=== PATIENT | male | born 1975 | race Caucasian/White ===

== ENCOUNTER 2017-12-31 09:50 | Emergency (ER) | payer MEDICAID ==
[2017-12-31] MEDS ORDERED: FAMOTIDINE 20 MG/2 ML VIAL IV STA (10:06)
[2017-12-31] MEDS ORDERED: SODIUM CHLORIDE 0.9% 1,000 ML IV STA (10:06)
[2017-12-31] MEDS ORDERED: RX INFO: IV CONTRAST WAS GIVEN 1 EACH MISC MISCELLANE PRN (10:07)
--- NOTE | 2017-12-31 10:12 | ED ---
General Adult HPI - General Chief complaint: Abdominal Pain Stated complaint: Abdominal pain Time Seen by Provider: 12/31/17 10:01 Source: patient, RN notes reviewed Mode of arrival: ambulatory Limitations: no limitations - History of Present Illness Initial comments: 42-year-old male presents to the emergency department with a chief complaint of centralized abdominal pain. He states that he had fever like symptoms beginning of the week last week towards the end he started to develop the centralized abdominal pain is slowly gotten worse. He states he's had some nausea. He's had some diarrhea. He denies any cough cold like symptoms. He states he's never had any abdominal pain like this before. He states that he did take a lot of Motrin last week he does not know if it's related to that. He was concerned due to his continued pain and history of fever so they thought that he should be seen.Patient denies any recent shortness of breath, chest pain , back pain, vomiting, numbness or tingling, dysuria or hematuria, constipation , headaches or visual changes, or any other current symptoms. - Related Data Home Medications Medication Instructions Recorded Confirmed Buprenorphine HCl [Subutex] 4 mg SL DAILY 12/31/17 12/31/17 Previous Rx's Medication Instructions Recorded Ibuprofen [Motrin] 600 mg PO Q6HR PRN #20 tab 12/31/17 Levofloxacin [Levaquin] 750 mg PO DAILY #7 tab 12/31/17 Allergies Allergy/AdvReac Type Severity Reaction Status Date / Time No Known Allergies Allergy Verified 12/31/17 10:13 Review of Systems ROS Statement: Those systems with pertinent positive or pertinent negative responses have been documented in the HPI. ROS Other: All systems not noted in ROS Statement are negative. Past Medical History Past Medical History: No Reported History History of Any Multi-Drug Resistant Organisms: None Reported Past Surgical History: No Surgical Hx Reported Past Psychological History: No Psychological Hx Reported Smoking Status: Current every day smoker Past Alcohol Use History: Rare Past Drug Use History: None Reported General Exam - General Exam Comments Initial Comments: General: The patient is awake and alert, in no distress, and does not appear acutely ill. Eye: Pupils are equal, round and reactive to light, extra-ocular movements are intact; there is normal conjunctiva bilaterally. No signs of icterus. Ears, nose, mouth and throat: There are moist mucous membranes. Neck: The neck is supple, there is no tenderness. Cardiovascular: There is a regular rate and rhythm. No murmur, rub or gallop is appreciated. Respiratory: Lungs are clear to auscultation, respirations are non-labored, breath sounds are equal. No wheezes, stridor, rales, or rhonchi. Gastrointestinal: Soft, non-distended, non-tender abdomen without masses or organomegaly noted. There is no rebound or guarding present. No CVA tenderness. Bowel sounds are unremarkable. Back: There is no tenderness to palpation in the midline. There is no obvious deformity. No rashes noted. Musculoskeletal: Normal ROM, no tenderness, There is no pedal edema. There is no calf tenderness or swelling. Sensation intact. Pulses equal bilaterally 2+. Neurological: CN II-XII intact, There are no obvious motor or sensory deficits. Coordination appears grossly intact. Speech is normal. Skin: Skin is warm and dry and no rashes or lesions are noted. Psychiatric: Cooperative, appropriate mood & affect, normal judgment. Limitations: no limitations Course Vital Signs 12/31/17 09:53 Temperature 98.6 F Pulse Rate 115 H Respiratory 18 Rate Blood Pressure 108/72 O2 Sat by Pulse 96 Oximetry Medical Decision Making - Medical Decision Making 42-year-old male presents to the emergency department with a chief complaint of centralized abdominal pain. At this time CAT scan and lab work is been reviewed. There is suspicion for a left lower lobe pneumonia. He has had the cough and the fever with abdominal pain. We did discuss that we will start him on antibiotics for this as well as Motrin. We discussed return parameters and follow-up and all they understood and management this plan. They will be discharged. - Lab Data Result diagrams: 12/31/17 10:20 12/31/17 10:20 Lab Results 12/31/17 12/31/17 12/31/17 Range/Units 10:20 10:20 10:20 WBC 4.9 (3.8-10.6) k/uL RBC 4.43 (4.30-5.90) m/uL Hgb 13.5 (13.0-17.5) gm/dL Hct 41.4 (39.0-53.0) % MCV 93.3 (80.0-100.0) fL MCH 30.4 (25.0-35.0) pg MCHC 32.6 (31.0-37.0) g/dL RDW 12.3 (11.5-15.5) % Plt Count 145 L (150-450) k/uL Neutrophils % 54 % Lymphocytes % 31 % Monocytes % 10 % Eosinophils % 0 % Basophils % 1 % Neutrophils # 2.6 (1.3-7.7) k/uL Lymphocytes # 1.5 (1.0-4.8) k/uL Monocytes # 0.5 (0-1.0) k/uL Eosinophils # 0.0 (0-0.7) k/uL Basophils # 0.0 (0-0.2) k/uL Sodium 140 (137-145) mmol/L Potassium 4.4 (3.5-5.1) mmol/L Chloride 104 (98-107) mmol/L Carbon Dioxide 26 (22-30) mmol/L Anion Gap 10 mmol/L BUN 15 (9-20) mg/dL Creatinine 0.63 L (0.66-1.25) mg/dL Est GFR (MDRD) Af Amer >60 (>60 ml/min/1.73 sqM) Est GFR (MDRD) Non-Af >60 (>60 ml/min/1.73 sqM) Glucose 105 H (74-99) mg/dL Calcium 9.0 (8.4-10.2) mg/dL Total Bilirubin 0.5 (0.2-1.3) mg/dL AST 25 (17-59) U/L ALT 27 (21-72) U/L Alkaline Phosphatase 39 (38-126) U/L Total Protein 6.9 (6.3-8.2) g/dL Albumin 3.9 (3.5-5.0) g/dL Amylase 46 (30-110) U/L Lipase 29 (23-300) U/L Urine Color Yellow Urine Appearance Clear (Clear) Urine pH 6.0 (5.0-8.0) Ur Specific [place] 1.048 H (1.001-1.035) Urine Protein Trace H (Negative) Urine Glucose (UA) Negative (Negative) Urine Ketones 1+ H (Negative) Urine Blood Negative (Negative) Urine Nitrite Negative (Negative) Urine Bilirubin Negative (Negative) Urine Urobilinogen <2.0 (<2.0) mg/dL Ur Leukocyte Esterase Negative (Negative) - Radiology Data Radiology results: report reviewed, image reviewed Disposition Clinical Impression: Left lower lobe pneumonia Disposition: HOME SELF-CARE Condition: Stable Instructions: Bacterial Pneumonia (ED) Additional Instructions: Please use medication as discussed. Please follow up with family doctor if symptoms have not improved over the next two days. Please return to the emergency room if your symptoms increase or worsen or for any other concerns. Prescriptions: Ibuprofen [Motrin] 600 mg PO Q6HR PRN #20 tab PRN Reason: Pain Levofloxacin [Levaquin] 750 mg PO DAILY #7 tab Referrals: Jayesh Woodruff MD [Primary Care Provider] - 1-2 days Time of Disposition: 12:21
[2017-12-31 10:44] LABS: Basophils % (A) 1 %; Eosinophils % (A) 0 %; HCT 41.4 % (39.0-53.0); HGB 13.5 gm/dL (13.0-17.5); Lymphocytes # (A) 1.5 k/uL (1.0-4.8); Lymphocytes % (A) 31 %; MCH 30.4 pg (25.0-35.0); MCHC 32.6 g/dL (31.0-37.0); MCV 93.3 fL (80.0-100.0); Mean Platelet Volume 7.1; Monocytes # (A) 0.5 k/uL (0-1.0); Monocytes % (A) 10 %; Neutrophils # (A) 2.6 k/uL (1.3-7.7); Neutrophils % (A) 54 %; Platelet Count 145 k/uL (150-450); RBC 4.43 m/uL (4.30-5.90); RDW 12.3 % (11.5-15.5); WBC 4.9 k/uL (3.8-10.6)
[2017-12-31 10:59] LABS: Albumin 3.9 g/dL (3.5-5.0); Amylase 46 U/L (30-110); Anion Gap 10 mmol/L; Carbon Dioxide 26 mmol/L (22-30); Chloride 104 mmol/L (98-107); Glucose 105 mg/dL (74-99); Lipase 29 U/L (23-300); Sodium 140 mmol/L (137-145); Total Bilirubin 0.5 mg/dL (0.2-1.3); Total Protein 6.9 g/dL (6.3-8.2)
[2017-12-31 11:02] LABS: ALT 27 U/L (21-72); AST 25 U/L (17-59); Alkaline Phosphatase 39 U/L (38-126); Blood Urea Nitrogen 15 mg/dL (9-20); Potassium 4.4 mmol/L (3.5-5.1)
--- NOTE | 2017-12-31 11:21 | CT ---
EXAMINATION TYPE: CT abdomen pelvis w con DATE OF EXAM: 12/31/2017 REFERENCE: NONE HISTORY: Pain HISTORY: Abdominal pain REFERENCE: NONE CT DLP: 423.10 mGy Automated exposure control for dose reduction was used. TECHNIQUE: Helical acquisition through the abdomen and pelvis was obtained following the oral ingesti on of without Oral Contrast and following intravenous administration of 100 ml mL of Omnipaque 300. T he data was reformatted in axial, coronal and sagittal projections. FINDINGS: There is a left lower lobe infiltrate. Right lung is clear. There is no pleural or pericar dial fluid. The heart is not enlarged. Within the abdomen, the gallbladder is partially contracted. The liver and spleen appear normal. Both adrenal glands are normal. Both kidneys demonstrate function and appear morphologically normal. The pancreas is unremarkable. There is no significant retroperitoneal, iliac or inguinal adenopathy. The bladder is unremarkable. There is no significant diverticular change and there is no radiographic evidence of diverticulitis. The appendix is not visualized with certainty. There is moderate stool within the colon. Small bowel loops are of normal caliber. No free fluid and no free air is seen. No bony lesion is seen. IMPRESSION: 1. LEFT LOWER LOBE INFILTRATE, LIKELY REPRESENTING PNEUMONIA. 2. NO ACUTE INTRA-ABDOMINAL INFLAMMATORY PROCESS. 3. NO EVIDENCE OF NEPHROLITHIASIS OR HYDRONEPHROSIS. 4. NONVISUALIZATION OF THE APPENDIX.
--- NOTE | 2017-12-31 11:47 | XR ---
EXAMINATION TYPE: XR chest 2V DATE OF EXAM ORDERED: 12/31/2017 HISTORY: cough. REFERENCE: None. FINDINGS: The lungs are clear. Pleural spaces are clear. Heart size is normal. IMPRESSION: NORMAL CHEST.
[2017-12-31 12:08] LABS: Appearance,Urine Clear (Clear); Bilirubin,Urine Negative (Negative); Blood,Urine Negative (Negative); Color,Urine Yellow; Glucose,Urine (UA) Negative (Negative); Ketones,Urine 1+ (Negative); Leukocyte Esterase,Urine Negative (Negative); Nitrite,Urine Negative (Negative); Protein,Urine Trace (Negative); Urobilinogen,Urine <2.0 mg/dL (<2.0)
[2017-12-31 12:20] LABS: Specific Gravity,Urine 1.048 (1.001-1.035)
[2017-12-31 13:06] VITALS: BP 104/61; PULSE 76; RESP 16; TEMP 97.6
== END 2017-12-31 13:06 | disposition home or self-care (01) ==
LOC: EDBD → EC 09:50 → MERGE 09:50 → EC 13:06
DX: J18.1 Lobar pneumonia, unspecified organism (principal); R10.9 Unspecified abdominal pain; F17.200 Nicotine dependence, unspecified, uncomplicated; Z79.891 Long term (current) use of opiate analgesic
CPT/HCPCS: 36415; 80053; 82150; 83690; 85025; 81003; 87040; 71046; 74177; 99284; 96374; 96361; Q9967

== ENCOUNTER 2018-01-03 07:02 | Day surgery (SDC) | payer MEDICAID ==
[2018-01-02 13:52] VITALS: BMI 20.4
[2018-01-03 07:21] VITALS: TEMP 98.4
[2018-01-03] MEDS ORDERED: LACTATED RINGERS 1,000 ML IV ONE ×2 (07:27)
[2018-01-03] MEDS ORDERED: PROPOFOL 10 MG/ML 20 ML VIAL IV ONE (07:38)
--- NOTE | 2018-01-03 07:59 | P.PCN ---
Date of Procedure: 01/03/18 Procedure(s) Performed: Preoperative Dx: Epigastric abdominal pain recent abnormal CAT scan Postoperative Dx: Gastritis with ulcerations Procedure: EGD with Bx Anesthesia: Sedation Endoscopist: Dr. Acosta Specimens: Antrum/gastric ulcer Endoscopic Procedure: The patient was on the endoscopy table in the left decubitus position. The Olympus gastroscope was inserted into the oropharynx and passed under direct visualization to the region of the third portion of the duodenum. From that point the scope was slowly withdrawn inspecting all surfaces carefully. There were no neoplastic inflammatory or polypoid lesions throughout the duodenum. The pylorus was widely patent. The stomach was carefully inspected. There was evidence of gastric ulcerations present. There were 2 main ulcers seen. Both ulcers were less than 1 cm in size and appeared relatively superficial however the mucosa in the antrum and prepyloric regions were quite thickened. Numerous biopsies were taken of the ulcer and around the ulcer site. The proximal stomach appeared normal. Retroflexion revealed a normal hiatus. The esophagus was then carefully examined. There were no neoplastic inflammatory or polypoid lesions throughout the visualized esophagus. The patient was then taken to the recovery room in stable condition per anesthesia guidelines. Recommendations: Await biopsy results. Start antiacids. Will require short- term follow-up in 3-6 months.
[2018-01-03 08:36] VITALS: BP 117/74; PULSE 78; RESP 16
== END 2018-01-03 08:50 | disposition home or self-care (01) ==
LOC: ORWHC2ENDO 07:02
PROVIDERS: ATTEND Surgery
DX: K29.50 Unspecified chronic gastritis without bleeding (principal); K25.9 Gastric ulcer, unspecified as acute or chronic, without hemorrhage or perforation; F17.210 Nicotine dependence, cigarettes, uncomplicated; Z79.2 Long term (current) use of antibiotics; Z79.899 Other long term (current) drug therapy; J18.9 Pneumonia, unspecified organism
CPT/HCPCS: 88305; 43239; J2704

== ENCOUNTER → 2018-01-31 | Outpatient (CLI) | payer MEDICAID ==
[2018-01-31 09:18] LABS: Basophils % (A) 1 %; Eosinophils # (A) 0.2 k/uL (0-0.7); Eosinophils % (A) 2 %; HCT 37.9 % (39.0-53.0); HGB 12.3 gm/dL (13.0-17.5); Lymphocytes # (A) 2.1 k/uL (1.0-4.8); Lymphocytes % (A) 25 %; MCHC 32.4 g/dL (31.0-37.0); MCV 89.6 fL (80.0-100.0); Mean Platelet Volume 7.2; Monocytes # (A) 0.6 k/uL (0-1.0); Monocytes % (A) 7 %; Neutrophils # (A) 5.3 k/uL (1.3-7.7); Neutrophils % (A) 64 %; Platelet Count 194 k/uL (150-450); RBC 4.23 m/uL (4.30-5.90); RDW 13.2 % (11.5-15.5); WBC 8.3 k/uL (3.8-10.6)
[2018-01-31 09:48] LABS: AST 15 U/L (17-59); Blood Urea Nitrogen 10 mg/dL (9-20); Calcium 9.7 mg/dL (8.4-10.2); Carbon Dioxide 30 mmol/L (22-30); Chloride 102 mmol/L (98-107); Glucose 95 mg/dL (74-99); Potassium 4.7 mmol/L (3.5-5.1); Total Bilirubin 0.5 mg/dL (0.2-1.3); Total Protein 6.7 g/dL (6.3-8.2)
[2018-01-31 09:49] LABS: ALT 19 U/L (21-72); Alkaline Phosphatase 52 U/L (38-126); Anion Gap 9 mmol/L; Sodium 141 mmol/L (137-145)
== END | disposition home or self-care (01) ==
LOC: LABWHC1 08:35
PROVIDERS: ATTEND Family Medicine
DX: F11.10 Opioid abuse, uncomplicated (principal); R68.89 Other general symptoms and signs
CPT/HCPCS: 36415; 80053; 84439; 84443; 85025

== ENCOUNTER 2020-08-02 14:27 | Emergency (ER) | payer MEDICAID ==
[2020-08-02] MEDS ORDERED: AMOXIC-POT CLAV 875-125MG 1 EACH TAB PO STA (14:51)
--- NOTE | 2020-08-02 14:55 | ED ---
ENT HPI - General Stated complaint: Dental Pain Time Seen by Provider: 08/02/20 14:41 - History of Present Illness Initial comments: Patient is a 44-year-old male presenting to the emergency department with a chief complaint of dental pain. Patient states she does wear dentures and for the last few days he developed increased irritation in the left upper jaw. Patient reports today's noticed there is a "blood blister" on the [place]. Patient reports it is tender to touch but denies any drainage from the region. She denies any night sweats fevers and chills. Denies any facial swelling, nausea vomiting diarrhea. Denies taking medication to alleviate the symptoms. - Related Data Home Medications Medication Instructions Recorded Confirmed Suboxone Tablet 4 mg PO DAILY 01/02/18 01/02/18 Previous Rx's Medication Instructions Recorded Ibuprofen [Motrin] 600 mg PO Q6HR PRN #20 tab 12/31/17 Levofloxacin [Levaquin] 750 mg PO DAILY #7 tab 12/31/17 Omeprazole [PriLOSEC] 20 mg PO AC-BRKFST #90 cap 01/03/18 Sucralfate [Carafate] 1 gm PO ACHS #120 tab 01/03/18 Allergies Allergy/AdvReac Type Severity Reaction Status Date / Time No Known Allergies Allergy Verified 01/02/18 13:43 Review of Systems ROS Statement: Those systems with pertinent positive or pertinent negative responses have been documented in the HPI. ROS Other: All systems not noted in ROS Statement are negative. Past Medical History Past Medical History: Pneumonia Additional Past Medical History / Comment(s): abdominal pain, pneumonia left lower lung-on rx, History of Any Multi-Drug Resistant Organisms: None Reported Past Surgical History: No Surgical Hx Reported Additional Past Surgical History / Comment(s): oral surgery Past Anesthesia/Blood Transfusion Reactions: No Reported Reaction Past Psychological History: No Psychological Hx Reported Past Alcohol Use History: None Reported Additional Past Alcohol Use History / Comment(s): smokes < 1 PPD, for 30 yrs Past Drug Use History: None Reported - Past Family History Mother Family Medical History: Cancer General Exam Limitations: no limitations General appearance: alert, in no apparent distress Head exam: Present: atraumatic, normocephalic, normal inspection Eye exam: Present: normal appearance, PERRL, EOMI Pupils: Present: normal accommodation ENT exam: Present: normal exam, mucous membranes moist, TM's normal bilaterally, normal external ear exam. Absent: normal oropharynx (Gumline irritation in the left upper jaw. No signs of an abscess at this time.) Neck exam: Present: normal inspection, full ROM. Absent: tenderness, meningismus Respiratory exam: Present: normal lung sounds bilaterally. Absent: respiratory distress, wheezes, rales Cardiovascular Exam: Present: regular rate, normal rhythm, normal heart sounds Extremities exam: Present: normal inspection, full ROM, normal capillary refill. Absent: tenderness Back exam: Present: normal inspection, full ROM. Absent: tenderness, CVA tenderness (R), CVA tenderness (L) Neurological exam: Present: alert, oriented X3, normal gait Psychiatric exam: Present: normal affect, normal mood. Absent: anxious, flat affect, manic Skin exam: Present: warm, dry, intact, normal color Course Vital Signs 08/02/20 14:59 Temperature 98.1 F Pulse Rate 90 Respiratory 16 Rate Blood Pressure 127/85 O2 Sat by Pulse 97 Oximetry Medical Decision Making - Medical Decision Making Patient is a 44-year-old male presenting to the emergency department with chief complaint dental pain. On physical examination, patient has a small little hematoma and area of gingival irritation the left upper jaw. No signs of periapical abscess. Patient will be started on Augmentin and discharged with a 10 day course of Augmentin. He will he has an appointment with his oral surgeon this week. Strict return parameters were thoroughly discussed with patient was understanding and agreeable. Case discussed with physician. Disposition Clinical Impression: Pain, dental, Inflamed gum Disposition: HOME SELF-CARE Condition: Good Instructions (If sedation given, give patient instructions): Toothache (ED) Additional Instructions: Follow-up with your oral surgeon. Return to emergency department if symptoms worsen. Take a medication as directed. Is patient prescribed a controlled substance at d/c from ED?: No Referrals: Jayesh Woodruff MD [Primary Care Provider] - 1-2 days Time of Disposition: 14:55
[2020-08-02 15:03] VITALS: BP 127/85; PULSE 90; RESP 16; TEMP 98.1
== END 2020-08-02 15:11 | disposition home or self-care (01) ==
LOC: EC 14:27
DX: K08.89 Other specified disorders of teeth and supporting structures (principal); K06.8 Other specified disorders of gingiva and edentulous alveolar ridge
CPT/HCPCS: 99282